=== PATIENT | male | born 1985 | race American Indian/Alaskan Native ===

== ENCOUNTER 2018-05-28 21:31 | Emergency (ER) | payer SELFPAY ==
--- NOTE | 2018-05-29 00:52 | Emergency Department Report ---
ED Rash HPI - HPI Chief Complaint: Skin Rash Stated Complaint: BILATERL THIGH PAIN Time Seen by Provider: 05/29/18 00:36 Duration: 1 month Location: Lower Extremities (bilateral thigh) Suspected Cause: Unknown (no pain) Rash Symptoms: Yes Itching, Yes Peeling (bilateral thigh rash), No Facial Swelling, No Tongue/Oral Swelling, No Breathing Difficulties, No Choking Sensation, No Wheezing/Dyspnea, No Blistering, No Fever, No Lightheaded, No Malaise, No Myalgias Severity: mild (HN) Other History: This is a 32-year-old male here reports that he's had rash to both his inner thighs for 1 month. He reports itching and he uses nystatin cream in the past without any with minimal relief. Patient has not wanted advanced manufacturing vice president. Denies any respiratory symptoms. His immunizations up-to-date. Drainage. Denies any pain. Denies any fever or chills. ED Review of Systems ROS: Stated complaint: BILATERL THIGH PAIN Other details as noted in HPI Constitutional: denies: chills, fever ENT: denies: ear pain, throat pain, congestion Respiratory: denies: cough, shortness of breath, SOB with exertion, SOB at rest , stridor, wheezing Cardiovascular: denies: chest pain, palpitations Gastrointestinal: denies: nausea, vomiting Genitourinary: denies: urgency, dysuria, frequency, hematuria, discharge Musculoskeletal: denies: back pain, joint swelling, arthralgia, myalgia Skin: rash, pruritus. denies: lesions Neurological: denies: headache Hematological/Lymphatic: easy bleeding ED Past Medical Hx - Past Medical History Previous Medical History?: No - Surgical History Past Surgical History?: No - Family History Family history: no significant - Social History Smoking Status: Never Smoker Substance Use Type: Marijuana - Medications Home Medications: Home Medications Medication Instructions Recorded Confirmed Last Taken Type Fluconazole [Diflucan TAB] 150 mg PO QDAY 2 Days #2 tablet 05/29/18 Unknown Rx Ketoconazole 60 gm TP BID 14 Days #1 cream..g. 05/29/18 Unknown Rx Rash Exam - Exam General: Vital signs noted. No distress. Alert and acting appropriately. This is a 32-year-old male well-nourished well-developed in no acute distress. HEENT: No Periorbital Edema, No Conjuctival Injection, No Chemosis, No Perioral Edema, No Tongue Edema, No Uvular Edema, No Compromised Airway, No Drooling Lungs: Yes Good Air Exchange (CTAB), No Wheezes, No Ronchi, No Stridor, No Cough , No Labored Respirations, No Retractions, No Use of Accessory Muscles, No Other Abnormal Lung Sounds Heart: Yes Regular (S1, S2), No Murmur Front/Back of Body, Lg (Color): 1 - Noted rashes, patches, well-demarcated borders with central clearing, no erythema, nontender to palpate, no drainage. Appear fungal in nature. Skin: Yes Excoriations, Yes Other (well-demarcated, central clearing, patches), No Urticarial Rash, No Maculopapular Rash, No Morbilliform rash, No Bulla(e), No Weeping, No Tenderness, No Erythema, No Edema, No Encrustations Other: Positive: Abdomen Normal, Neurologic Normal, Musculoskeletal Normal ED Course Vital Signs 05/28/18 22:55 Temperature 97.7 F Pulse Rate 58 L Respiratory 16 Rate Blood Pressure 121/74 O2 Sat by Pulse 98 Oximetry - Reevaluation(s) Reevaluation #1: 05/29/18 01:07 stable throughout ED stay. ED Medical Decision Making - Medical Decision Making Patient presents to emergency room reported ongoing rash for over a month between thighs. He said he was prescribed nystatin cream in the past but it did not take rash away. He denies any respiratory symptoms. Rash is localized to both inner thighs with itching. No penile rash or drainage. Patient found to have fungal type rash bilateral inner thighs. I discussed diagnosis and treatment plan the patient's and need to follow up with advanced manufacturing vice president for further evaluation and treatment he voiced understanding. Patient vital signs are stable afebrile he has no respiratory symptoms. He is nontoxic in appearance. Patient initiated on diagnosis: Medication, treatment plan and need to follow up with advanced manufacturing vice president and he voiced understanding. Discharge home with prescription for ketoconazole topical, Diflucan tablet and follow-up with advanced manufacturing vice president and primary care physician in 2-3 days and he voiced understanding. Critical care attestation.: If time is entered above; I have spent that time in minutes in the direct care of this critically ill patient, excluding procedure time. ED Disposition Clinical Impression: Tinea corporis Disposition: DC-01 TO HOME OR SELFCARE Is pt being admited?: No Does the pt Need Aspirin: No Condition: Stable Instructions: Tinea Corporis (ED) Additional Instructions: Please keep affected area clean and dry Use antifungal cream as instructed Diflucan 150 mg once daily 2 days Please follow up with advanced manufacturing vice president in 2-3 days. Prescriptions: Fluconazole [Diflucan TAB] 150 mg PO QDAY 2 Days #2 tablet Ketoconazole 60 gm TP BID 14 Days #1 cream..g. Referrals: PRIMARY CARE, [Primary Care Provider] - 2-3 Days PIOTR MANCERA MD [Staff Physician] - 2-3 Days [facility] [Outside] - 2-3 Days Forms: Work/School Release Form(ED)
[2018-05-29 01:09] VITALS: BP 129/81
== END 2018-05-29 01:10 | disposition home or self-care (01) ==
LOC: ED 21:31
DX: B35.4 Tinea corporis (principal); F12.90 Cannabis use, unspecified, uncomplicated
CPT/HCPCS: 99282

== ENCOUNTER 2018-07-18 07:10 | Emergency (ER) | payer SELFPAY ==
--- NOTE | 2018-07-18 08:32 | Emergency Department Report ---
ED Male HPI - General Chief complaint: Urogenital-Male Stated complaint: YEAST INFECTION Time Seen by Provider: 07/18/18 08:24 Source: patient Mode of arrival: Ambulatory Limitations: No Limitations - History of Present Illness Initial comments: This is a 32-year-old male nontoxic, well nourished in appearance, no acute signs of distress presents to the ED with c/o of penile ulcer and itching x1 day. Patient stated he was seen in the previous visit and was diagnosed with tinea corporis and symptoms resolved but then patient had unprotected sexual intercourse prior to the symptoms. Patient denies any testicular pain or swelling. Patient denies any penile discharge. Patient denies any nausea, vomiting, chest pain, shortness of breathe, fever, chills, headache, back pain, numbness, tingling, stiff neck. Patient denies any urinary symptoms. Patient denies any allergies or PMH. MD Complaint: other (penile ulcer and itching) -: days(s) (1) Location: penis Radiation: none Severity: mild Severity scale (0 -10): 3 Quality: aching Consistency: constant Improves with: none Worsens with: none denies other symptoms. denies: discharge, swelling, mass, rash, urinary retention, blood in urine, dysuria, fever, nausea/vomiting, incontinence - Related Data Previous Rx's Medication Instructions Recorded Last Taken Type Fluconazole [Diflucan TAB] 150 mg PO QDAY 2 Days #2 tablet 05/29/18 Unknown Rx Ketoconazole 60 gm TP BID 14 Days #1 cream..g. 05/29/18 Unknown Rx Acyclovir [Zovirax Tab] 400 mg PO Q8H #21 tab 07/18/18 Unknown Rx Allergies Allergy/AdvReac Type Severity Reaction Status Date / Time No Known Allergies Allergy Unverified 05/28/18 23:00 ED Review of Systems ROS: Stated complaint: YEAST INFECTION Other details as noted in HPI Constitutional: denies: chills, fever Eyes: denies: eye pain, eye discharge, vision change ENT: denies: ear pain, throat pain Respiratory: denies: cough, shortness of breath, wheezing Cardiovascular: denies: chest pain, palpitations Endocrine: no symptoms reported Gastrointestinal: denies: abdominal pain, nausea, diarrhea Genitourinary: denies: urgency, dysuria Musculoskeletal: denies: back pain, joint swelling, arthralgia Skin: denies: rash, lesions Neurological: denies: headache, weakness, paresthesias Psychiatric: denies: anxiety, depression Hematological/Lymphatic: denies: easy bleeding, easy bruising ED Past Medical Hx - Past Medical History Previous Medical History?: No - Surgical History Past Surgical History?: No - Social History Smoking Status: Never Smoker Substance Use Type: Marijuana - Medications Home Medications: Home Medications Medication Instructions Recorded Confirmed Last Taken Type Fluconazole [Diflucan TAB] 150 mg PO QDAY 2 Days #2 tablet 05/29/18 Unknown Rx Ketoconazole 60 gm TP BID 14 Days #1 cream..g. 05/29/18 Unknown Rx Acyclovir [Zovirax Tab] 400 mg PO Q8H #21 tab 07/18/18 Unknown Rx ED Physical Exam - General Limitations: No Limitations General appearance: alert, in no apparent distress - Head Head exam: Present: atraumatic, normocephalic - Eye Eye exam: Present: normal appearance - ENT ENT exam: Present: mucous membranes moist - Neck Neck exam: Present: normal inspection - Respiratory Respiratory exam: Present: normal lung sounds bilaterally. Absent: respiratory distress - Cardiovascular Cardiovascular Exam: Present: regular rate, normal rhythm. Absent: systolic murmur, diastolic murmur, rubs, gallop - GI/Abdominal GI/Abdominal exam: Present: soft, normal bowel sounds - Rectal Rectal exam: Present: deferred - exam: Present: normal inspection. Absent: testicular tenderness, urethral discharge, scrotal swelling, vertical testicular lie, circumcision External exam: Present: lesions (3 ulcers to penile shaft area with pain. ), other (no lymphadenopathy). Absent: erythema, swelling, lacerations, ecchymosis , bleeding - Extremities Exam Extremities exam: Present: normal inspection, full ROM - Back Exam Back exam: Present: normal inspection, full ROM. Absent: tenderness, CVA tenderness (R), CVA tenderness (L), muscle spasm, paraspinal tenderness, vertebral tenderness, rash noted - Neurological Exam Neurological exam: Present: alert, oriented X3 - Psychiatric Psychiatric exam: Present: normal affect, normal mood - Skin Skin exam: Present: warm, dry, intact, normal color. Absent: rash ED Course Vital Signs 07/18/18 07:49 Temperature 98.8 F Pulse Rate 61 Respiratory 16 Rate Blood Pressure 137/94 O2 Sat by Pulse 99 Oximetry - Reevaluation(s) Reevaluation #1: 07/18/18 08:31 Patient is speaking in full sentences with no signs of distress noted. ED Medical Decision Making - Medical Decision Making 32-year-old male that presents with genital herpes. Patient is stable and was examined by me. Patient was educated on HSV and transmission. Patient will be treated with Acyclovir. Patient denies any PMH or liver damage. Patient is also treated empirically with Rocephin and azithromycin due to sexual activity prior to the symptoms. Patient was instructed to Follow-up with a primary care doctor in 3-5 days or if symptoms worsen and continue return to emergency room as soon as possible. At time of discharge, the patient does not seem toxic or ill in appearance. No acute signs of distress noted. Patient agrees to discharge treatment plan of care. No further questions noted by the patient. Critical care attestation.: If time is entered above; I have spent that time in minutes in the direct care of this critically ill patient, excluding procedure time. ED Disposition Clinical Impression: Genital herpes in men Disposition: DC-01 TO HOME OR SELFCARE Is pt being admited?: No Does the pt Need Aspirin: No Condition: Stable Instructions: Acyclovir (By mouth), Genital Herpes Simplex (ED) Additional Instructions: Follow-up with a primary care doctor in 3-5 days or if symptoms worsen and continue return to emergency room as soon as possible. Prescriptions: Acyclovir [Zovirax Tab] 400 mg PO Q8H #21 tab Referrals: PRIMARY CAREMD [Referring] - 3-5 Days LUNA MORALES MD [Staff Physician] - 3-5 Days [facility] [Outside] - 3-5 Days [facility] [Outside] - 3-5 Days Forms: Work/School Release Form(ED)
[2018-07-18] MEDS ORDERED: XYLOCAINE 1% MPF 5 mL INFILTRATI ONE (08:52)
[2018-07-18] MEDS ORDERED: ZITHROMAX PO ONE (08:52)
[2018-07-18] MEDS ORDERED: ROCEPHIN IM ONE (08:52)
[2018-07-18 09:09] VITALS: BP 132/72
== END 2018-07-18 09:07 | disposition home or self-care (01) ==
LOC: ED 07:10
DX: A60.01 Herpesviral infection of penis (principal); F12.10 Cannabis abuse, uncomplicated
CPT/HCPCS: 96372; 99282; J0696